=== PATIENT | female | born 2000 | race Hispanic/Latino ===

== ENCOUNTER 2020-08-30 09:01 | Outpatient (CLI) | payer OTHER, SELFPAY | END 2020-08-30 09:02 | disposition home or self-care (01) | LOC: ANHCOVIDVC 09:01 | DX: Z23 Encounter for immunization (principal) | CPT/HCPCS: 0002A; 91300 ==

== ENCOUNTER 2020-09-20 09:04 | Outpatient (CLI) | payer OTHER, SELFPAY | END 2020-09-20 09:05 | disposition home or self-care (01) | LOC: ANHCOVIDVC 09:04 | DX: Z23 Encounter for immunization (principal) | CPT/HCPCS: 0002A; 91300 ==

== ENCOUNTER 2021-08-10 11:12 | Emergency (ER) | payer OTHER, SELFPAY ==
--- NOTE | 2021-08-10 11:14 | ED.BURNSMOKE ---
HPI - Burn/Smoke Inhalation General Chief complaint: Burn/Smoke Inhalation Stated complaint: Left hand burn Time Seen by Provider: 08/10/21 11:14 Source: patient Mode of arrival: ambulatory Limitations: no limitations History of Present Illness HPI Narrative: is in clinic today with complaints of a burn to the second and third finger of the left hand that occurred just prior to arrival today.. 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 She she has placed an ice pack on this. Blisters already noted. Is tearful. Related Data Allergies Allergy/AdvReac Type Severity Reaction Status Date / Time No Known Allergies Allergy Unverified 12/24/14 20:43 Review of Systems Review of Systems: Pertinent positives per HPI. Patient denies any fever, chills, rash, headache, visual changes, dizziness, cough, runny nose, sore throat, shortness of breath, chest pain, palpitations, nausea, vomiting, diarrhea, constipation, abdominal pain, or any urinary issues. PMFSH Social History Social History Smoking status: Never smoker Alcohol intake: never Comments At the time of my signature, I reviewed and agree with the nursing past medical, surgical, social, and family history. There is no relevant family history pertinent to the patient complaint. Exam Narrative: General: Well-developed, well nourished, in no apparent distress Cardio: Regular rate and rhythm, s1 and s2 normal, no murmur appreciated. Resp: Clear to auscultation bilaterally, no rhonchi, rales, wheezing or rubs. Integumentary: [place], warm, and dry, blistering and redness noted to the top of the second digit and to the medial third digit. Tenderness also noted to the dorsal aspect of the second digit. Course Course Emergency Course: Portions of this record may have been created with voice recognition software. Level of Care: Express Care Visit Reevaluation(s) Reevaluation #1: Pain Date: 08/10/21 Time: 11:55 Reevaluation #2: No change in pain at the time of discharge. No adverse reaction. Vital Signs Vital signs: Vital Signs Temperature 36.7 C 08/10/21 11:18 Pulse Rate 84 08/10/21 11:18 Respiratory Rate 16 08/10/21 11:18 Blood Pressure 123/80 08/10/21 11:18 Pulse Oximetry 100 08/10/21 11:18 Temperature 36.7 C 08/10/21 11:18 Pulse Rate 84 08/10/21 11:18 Respiratory Rate 16 08/10/21 11:18 Blood Pressure 123/80 08/10/21 11:18 Pulse Oximetry 100 08/10/21 11:18 Vital signs reviewed MDM - Burn/Smoke Inhalation MDM Narrative Medical decision making narrative: At the time of assessment patient has blistering to the second and third fingers. Had patient run her hand under cold water to stop the burning. Silvadene dressing applied in the clinic. Toradol 60 mg IM given in the clinic for pain. Tetanus status is up-to-date. We will send patient home with Silvadene dressings and to take Tylenol Motrin as needed for pain and may continue to apply cold packs. Differential Diagnosis Differential diagnosis: Likely other (Third-degree burn, second-degree burn, first-degree burn) Discharge Plan Discharge Clinical Impression: Second degree burn injury Patient Disposition: Home, Self-Care Condition: Stable Instructions: Antibiotic Form, Second-Degree Burn (ED) Additional Instructions: Keep clean and dry. Wash daily with soap and water. Do not pop blisters-as they will pop on their own. Silvadene dressing change daily for 7 days Toradol 60 mg IM was given in the clinic today for pain Follow-up with your primary care provider and 3 to 5 days as needed Watch for signs and symptoms of infection such as increasing redness, swelling, pain, purulent discharge, or streaking. Prescriptions: New silver sulfadiazine [Silvadene] 1 % cream 1 applic topical DAILY 7 Days Qty: 50 RF: 0 Follow-up/Referrals: UNKNOWN
[2021-08-10 11:18] VITALS: BP 123/80; PULSE 84; RESP 16; TEMP 36.7; O2SAT 100
[2021-08-10] MEDS: SILVER SULFADIAZINE 1% CR 50 GM JAR (*BKC) 1 APPLIC TOPICAL (11:46)
[2021-08-10] MEDS: KETOROLAC (*BKC) 60 MG/2 ML VIAL IM (11:46)
--- NOTE | 2021-08-10 12:50 | PC.NURSE ---
Wound cleansed then sharmila valle and avis applied Ice in place.
== END 2021-08-10 12:10 | disposition home or self-care (01) ==
LOC: EXPGLEN 11:16
PROVIDERS: Emergency Provider Nurse Practitioner Family
DX: T23.232A Burn of second degree of multiple left fingers (nail), not including thumb, initial encounter (principal); X10.0XXA Contact with hot drinks, initial encounter; Y99.0 Civilian activity done for income or pay
CPT/HCPCS: 16020; 96372; 99213; A9270; G0463; J1885

== ENCOUNTER 2021-09-04 07:31 | Outpatient (RCR) | payer OTHER, SELFPAY ==
[2021-08-20 13:29] VITALS: BMI 32.0
== END 2021-09-13 12:46 | disposition home or self-care (01) ==
LOC: ANHWOC 07:31
PROVIDERS: PCP Family Medicine; Visit Provider Physician Assistant
DX: T23.002A Burn of unspecified degree of left hand, unspecified site, initial encounter (principal); T23.032A Burn of unspecified degree of multiple left fingers (nail), not including thumb, initial encounter
CPT/HCPCS: 99212; G0463

== ENCOUNTER 2024-03-07 11:40 | Outpatient (CLI) | payer OTHER, SELFPAY ==
[2024-03-07 12:06] LABS: Basophils Percent Auto 0.4 % (0.2-1.2); Eosinophils Percent Auto 0.5 % (0-4.4); Hematocrit 40.4 % (37.0-47.0); Hemoglobin 13.5 g/dL (12.0-15.0); Immature Granulocyte Absolute 0.02 K/mm3 (0.00-0.031); Immature Granulocyte Percent A 0.3 % (0-0.5); Lymphocytes Absolute Auto 1.73 K/mm3 (0.9-3.2); Lymphocytes Percent Auto 21.7 % (18.3-44.2); Mean Corpuscular HGB Conc 33.4 g/dl (32-36); Mean Corpuscular Hemoglobin 27.8 pg (26-34); Mean Corpuscular Volume 83.3 fl (80-100); Mean Platelet Volume 11.1 fl (7.4-10.4); Monocytes Absolute Auto 0.5 K/mm3 (0.1-0.6); Monocytes Percent Auto 5.8 % (2.6-8.5); Neutrophils Absolute Auto 5.7 K/mm3 (1.3-6.7); Neutrophils Percent Auto 71.3 % (45.5-73.1); Platelet Count Result 228 k/mm3 (150-375); Red Blood Count 4.85 M/mm3 (4.2-5.4)
[2024-03-07 12:15] LABS: Alanine Aminotransferase 16 U/L (6-35); Albumin Level 4.8 g/dL (3.5-5.1); Alkaline Phosphatase 62 U/L (38-126); Anion Gap 8 mmol/L (4-12); Aspartate Amino Transferase 23 U/L (14-36); Bilirubin,Total 0.5 mg/dL (0.2-1.3); Blood Urea Nitrogen 10 mg/dL (7-17); Calcium 9.5 mg/dL (8.4-10.2); Carbon Dioxide 26 mmol/L (22-30); Chloride 103 mmol/L (98-107); Estimated Glomerular Filt Rate > 60; Glucose 100 mg/dL (65-110); Potassium 4.2 mmol/L (3.4-5.0); Sodium 137 mmol/L (137-145)
[2024-03-07 12:22] LABS: Iron 104 ug/dL (37-170)
[2024-03-07 12:25] LABS: Add Urine Microscopic? YES; Appearance Urine Clear (Clear); Bacteria Urine Rare /hpf; Bilirubin Urine Negative (Negative); Blood Urine Negative (Negative); Color Urine Yellow (Yellow); Glucose Urine UA Negative (Negative); Ketones Urine Negative (Negative); Leukocyte Esterase Ur 1+ LEU/UL (Negative); Need Manual Microscopic Reviewed; Nitrate Urine Negative (Negative); Non Pathogenic Casts 0-2; Protein Urine Negative (Negative); RBC Urine 0-2 /hpf (0-2); Specific Grav Ur 1.015 (1.001-1.035); Squamous Epithelial Cell Urine Occasional /hpf (Few); Urobilinogen Urine 0.2 mg/dL (<2.0); WBC Urine 0-5 /hpf (0-3)
[2024-03-07 12:31] LABS: Percent Iron Saturation 26 % (20-50)
[2024-03-07 12:52] LABS: Vitamin D 25 Hydroxy 29.2 ng/mL
[2024-03-07 13:22] LABS: Folic Acid 10.1 ng/mL (2.76->20)
== END 2024-03-07 11:41 | disposition home or self-care (01) ==
PROVIDERS: PCP Family Medicine; Visit Provider Physician Assistant
DX: Z00.00 Encounter for general adult medical examination without abnormal findings (principal); L65.9 Nonscarring hair loss, unspecified; Z78.9 Other specified health status
CPT/HCPCS: 36415; 80053; 81001; 82306; 82607; 82728; 82746; 83540; 83550; 84443; 85025

== ENCOUNTER 2024-10-27 11:20 | Outpatient (CLI) | payer OTHER, SELFPAY ==
[2024-10-27 12:16] LABS: Cholesterol 159 mg/dL (0-200); HDL Direct 53 mg/dL; Triglycerides 89 mg/dL (<150)
[2024-10-27 12:21] LABS: LDL Cholesterol Direct 77 mg/dL
[2024-10-27 14:25] LABS: Hemoglobin A1C 5.6 % (<5.7)
[2024-10-28 10:13] LABS: Progesterone 0.6 ng/mL
[2024-10-29 01:23] LABS: FSH 6.8 mIU/mL; Insulin Level Total 11.8 uIU/mL; LH 4.5 mIU/mL
[2024-10-29 01:45] LABS: DHEA-Sulfate 244 mcg/dL (14-349)
[2024-11-01 18:29] LABS: Testosterone Free 3.6 pg/mL (0.1-6.4); Testosterone Total 30 ng/dL (2-45)
== END 2024-10-27 11:21 | disposition home or self-care (01) ==
LOC: ANHLAB 11:22
PROVIDERS: PCP Family Medicine; Visit Provider Obstetrics & Gynecology
DX: L65.9 Nonscarring hair loss, unspecified (principal); R79.89 Other specified abnormal findings of blood chemistry; R73.09 Other abnormal glucose
CPT/HCPCS: 36415; 80061; 82627; 83001; 83002; 83036; 83525; 84144; 84402; 84403